=== PATIENT | female | born 1970 | race Caucasian/White ===

== ENCOUNTER 2020-06-09 12:17 | Outpatient (REF) | payer MEDICARE, MEDICAID, SELFPAY ==
--- NOTE | 2020-06-09 12:23 | MM_ITS ---
EXAMINATION: MM DIAGNOSTIC DIGITAL BREAST TOMOSYNTHESIS, BILATERAL US DIAGNOSTIC ULTRASOUND BREAST, LEFT CLINICAL INFORMATION: Chronic pain upper outer left breast for several years. Due for yearly exam. No known family history breast cancer The lifetime risk of breast cancer based on the Tyrer-Cuzick Model is 8%. COMPARISON: Mammography: 07/02/2018, 09/15/2010 TECHNIQUE: Digital breast tomosynthesis is performed in both the craniocaudal and mediolateral oblique views along with computer-aided detection (CAD). Synthesized 2D images are generated from the tomosynthesis. Ultrasound left breast is performed 12:00 through 5:00 position using grayscale imaging and color Doppler without and with harmonics. FINDINGS: There are scattered areas of fibroglandular density (ACR BI-RADS breast composition Category b). There is fine fibronodular parenchymal pattern similar to prior studies. There is no developing density or interval mass or architectural abnormality. No abnormal calcifications. No skin thickening or coarsening of the Yoel's ligaments. No significant changes from prior exams. Ultrasound left breast demonstrates no cystic or solid mass, architectural abnormality, or focal duct ectasia. No skin thickening or edema tracking in soft tissue planes. Results are discussed with the patient at time of visit, using an aviation safety inspector. MM/MM tomosynthesis diagnostic BI IMPRESSION: 1. No mammographic evidence of malignancy or inflammatory changes. 2. Unremarkable left breast ultrasound. ASSESSMENT: BI-RADS 1: Negative RECOMMENDATION: 1. Patient's chronic left breast pain should be be managed based on the clinical impression. 2. Otherwise, routine annual screening mammography. This patient's information was entered into a reminder system with a target due date for their next mammogram.
== END 2020-06-09 12:18 | disposition home or self-care (01) ==
LOC: HO.MAMMO 12:17
PROVIDERS: PCP Internal Medicine; Visit Provider Internal Medicine
DX: N64.4 Mastodynia (principal)
CPT/HCPCS: 76641; 77062; 77066

== ENCOUNTER → 2020-06-10 15:05 | Outpatient (BNVA) | payer MEDICARE, MEDICAID, SELFPAY | PROVIDERS: PCP Internal Medicine; Referring Provider Internal Medicine; Visit Provider Obstetrics & Gynecology | DX: R10.31 Right lower quadrant pain (principal) | CPT/HCPCS: 99212 ==

== ENCOUNTER 2020-06-14 13:51 | Outpatient (REF) | payer MEDICARE, MEDICAID, SELFPAY ==
--- NOTE | 2020-06-14 13:57 | US_ITS ---
EXAMINATION: US PELVIS, COMPLETE CLINICAL INFORMATION: Pelvic pain; postmenopausal patient. COMPARISON: Pelvic ultrasound dated 12/22/2011. TECHNIQUE: Transabdominal and transvaginal imaging was performed. FINDINGS: The uterus is of normal size and heterogeneous in echotexture, measuring 7.6 x 3.9 x 4.3 cm. The uterus is anteverted and anteflexed. A regular homogeneous endometrium is identified measuring 0.4 cm. Nabothian cysts are seen within the cervix Both ovaries are of normal size and echogenicity. The right ovary measures 2.0 x 1.2 x 1.7 cm for a volume of 2.1 mL. The left ovary measures 2.3 x 1.4 x 1.4 cm for a volume of 2.4 mL. There is a small amount of free fluid in the cul-de-sac. No adnexal mass is seen. US/US transvaginal IMPRESSION: 1. There is a small amount of nonspecific free fluid in the cul-de-sac. 2. Nabothian cysts are seen within the cervix. 3. Otherwise, unremarkable examination.
--- NOTE | 2020-06-14 13:57 | US_ITS ---
EXAMINATION: US PELVIS, COMPLETE CLINICAL INFORMATION: Pelvic pain; postmenopausal patient. COMPARISON: Pelvic ultrasound dated 12/22/2011. TECHNIQUE: Transabdominal and transvaginal imaging was performed. FINDINGS: The uterus is of normal size and heterogeneous in echotexture, measuring 7.6 x 3.9 x 4.3 cm. The uterus is anteverted and anteflexed. A regular homogeneous endometrium is identified measuring 0.4 cm. Nabothian cysts are seen within the cervix Both ovaries are of normal size and echogenicity. The right ovary measures 2.0 x 1.2 x 1.7 cm for a volume of 2.1 mL. The left ovary measures 2.3 x 1.4 x 1.4 cm for a volume of 2.4 mL. There is a small amount of free fluid in the cul-de-sac. No adnexal mass is seen. US/US pelvic complete IMPRESSION: 1. There is a small amount of nonspecific free fluid in the cul-de-sac. 2. Nabothian cysts are seen within the cervix. 3. Otherwise, unremarkable examination.
== END 2020-06-14 13:52 | disposition home or self-care (01) ==
LOC: HO.US 13:51
PROVIDERS: Visit Provider Obstetrics & Gynecology
DX: R10.2 Pelvic and perineal pain (principal)
CPT/HCPCS: 76830; 76856

== ENCOUNTER 2020-07-26 12:41 | Outpatient (REF) | payer MEDICARE, MEDICAID, SELFPAY ==
[2020-07-27 09:42] LABS: BV Int Neg Control Negative (Negative); BV Int Pos Control Positive (Positive)
== END 2020-07-26 12:42 | disposition home or self-care (01) ==
LOC: HO.LAB 12:41
PROVIDERS: Visit Provider Obstetrics & Gynecology
DX: Z01.419 Encounter for gynecological examination (general) (routine) without abnormal findings (principal); B37.3 Candidiasis of vulva and vagina; Z78.0 Asymptomatic menopausal state
CPT/HCPCS: 87480; 87510; 87660

== ENCOUNTER 2020-08-23 12:33 | Outpatient (REF) | payer MEDICARE, MEDICAID, SELFPAY ==
[2020-08-23 14:02] LABS: Alanine Aminotransferase 149 U/L (0-31); Albumin Level 4.5 g/dL (3.5-5.0); Alkaline Phosphatase 64 U/L (39-117); Anion Gap 12 (12-20); Aspartate Amino Transferase 96 U/L (5-31); Bilirubin Total 0.3 mg/dL (0.0-1.0); Blood Urea Nitrogen 10 mg/dL (9-16); Calcium 9.4 mg/dL (8.4-10.2); Carbon Dioxide 34 mmol/L (22-29); Chloride 99 mmol/L (96-108); Cholesterol 268 mg/dL; Estimated Glomerular Filt Rate > 60; Glucose Fasting 99 mg/dL (60-99); HDL Cholesterol 48 mg/dL; LDL Cholesterol Calculated 182 mg/dl; Potassium 3.9 mmol/l (3.3-5.1); Sodium 141 mmol/L (135-145); Total Protein 7.8 g/dL (6.5-8.0); Triglycerides 194 mg/dL
[2020-08-23 14:09] LABS: TSH reflex Free T4 0.79 mIU/mL (0.32-4.0)
[2020-08-24 19:47] LABS: Thyroglobulin Antibodies <1 IU/mL (< or = 1); Thyroid Peroxidase Antibodies <1 IU/mL (<9)
== END 2020-08-23 12:34 | disposition home or self-care (01) ==
LOC: HO.LAB 12:33
PROVIDERS: PCP Internal Medicine; Visit Provider Internal Medicine
DX: I10 Essential (primary) hypertension (principal); E78.00 Pure hypercholesterolemia, unspecified; E03.9 Hypothyroidism, unspecified
CPT/HCPCS: 36415; 80053; 80061; 84443; 86376; 86800

== ENCOUNTER → 2020-08-24 14:40 | Outpatient (BNVA) | payer MEDICARE, MEDICAID, SELFPAY | PROVIDERS: PCP Obstetrics & Gynecology; Visit Provider Nurse Practitioner Family | DX: Z76.89 Persons encountering health services in other specified circumstances (principal) | CPT/HCPCS: Q3014 ==

== ENCOUNTER → 2020-10-11 12:35 | Outpatient (BNVA) | payer MEDICARE, MEDICAID, SELFPAY | PROVIDERS: PCP Internal Medicine; Visit Provider Internal Medicine | DX: Z01.810 Encounter for preprocedural cardiovascular examination (principal); R07.2 Precordial pain; I10 Essential (primary) hypertension; E78.5 Hyperlipidemia, unspecified | CPT/HCPCS: 93005; 99202 ==

== ENCOUNTER 2020-10-27 07:40 | Day surgery (SDC) | payer MEDICARE, MEDICAID, SELFPAY ==
[2020-10-21 14:23] VITALS: BMI 33.5
--- NOTE | 2020-10-26 10:38 | HO.ANESPROP2 ---
Documented by User: Kirsten Mahoney 10/26/20 12:12 HPI - Anesthesia Eval Consult details Narrative: 50yo F for Colonoscopy *multiple med allergies* Pt sent for cardiac clearance preop, stress test ordered, but patient no showed. Per Dr Gloria, cardiology, pt maybe proceed without stress test at intermed risk. Von Willebrands - per T/C with Dr Salazar, pt to receive platelets preop. Heme to fax orders. PMFSH Active Problems Active Problems: All Active Problems (Updated 10/21/20 @ 14:22 by Tracy Pittman) Preoperative cardiovascular examination (Acute) Precordial chest pain (Acute) Other and unspecified hyperlipidemia (Acute) Pain of left breast (Acute) Hypovitaminosis D (Acute) Fibromyalgia (Acute) Hypothyroidism (Acute) Essential hypertension (Acute) Pure hypercholesterolemia (Acute) Past Medical History Medical History (Updated 10/21/20 @ 14:22 by Tracy Pittman) Anxiety Depression Essential hypertension Fibromyalgia History of asthma Hyperparathyroidism Hypothyroidism Hypovitaminosis D Pain of left breast Pure hypercholesterolemia Recent travel on aircraft Rectal bleeding Von Willebrand disease Family History Family History Father Diabetes Hypertension Mother Hypertension Surgical History Surgical History (Updated 10/21/20 @ 14:18 by Tracy Pittman) History of History of loop electrical excision procedure (LEEP) History of melanoma Social History Social History (Updated 10/21/20 @ 14:19 by Tracy Pittman) Alcohol intake: never Smoking Status: Never smoker Use of substances other than those prescribed or required for medical reasons: Yes Substance Use Type: Marijuana Substance Use Frequency: Occasionally Advance Directives: No Advance Directives Information Provided: No Advance Directives on File: No Meds Allergies Allergy/AdvReac Type Severity Reaction Status Date / Time Iodinated Contrast Media Allergy Intermediate ITCHING/SHORTNESS Verified 10/11/20 12:54 [IV CONTRAST] OF BREATH aspirin [ASPIRIN] Allergy Unknown GASTRIC Verified 10/11/20 12:54 BLEEDING, bleeding divalproex sodium Allergy Unknown SWELLING Verified 10/11/20 12:54 [From DEPAKOTE] ezetimibe [Zetia] Allergy Unknown stomach Verified 10/11/20 12:54 upset lithium [LITHIUM] Allergy Unknown SWELLING Verified 10/11/20 12:54 metoclopramide [Reglan] Allergy Unknown anxiety Verified 10/11/20 12:54 pravastatin Allergy Unknown stomach Verified 10/11/20 12:54 upset simvastatin Allergy Unknown stomach Verified 10/11/20 12:54 upset Sulfa (Sulfonamide Allergy Unknown ITCHING, Verified 10/11/20 12:54 Antibiotics) pruritus, [SULFA (SULFONAMIDE rash ANTIBIOTICS)] lamotrigine [From LAMICTAL] AdvReac Unknown AGGRESSION Verified 10/11/20 12:54 flu shot Allergy Unknown pruritus,ra Uncoded 10/11/20 12:54 sh,vomiting seasonal allergies Allergy Unknown nasal and Uncoded 10/11/20 12:54 throat irratation Statins Support Allergy Unknown rash, itchy Uncoded 10/11/20 12:54 platelets AdvReac Mild redness,itching-IV Uncoded 10/11/20 12:54 Benadryl [id number] rash c PO From SEROQUEL AdvReac Unknown ANXIOUS Uncoded 10/11/20 12:54 Home Medications Medication Instructions Recorded Confirmed Last Taken Type amitriptyline 50 mg tablet 50 mg PO BEDTIME 05/18/20 10/21/20 Unknown History cholecalciferol (vitamin D3) 25 25 mcg PO DAILY 05/18/20 10/21/20 Unknown History mcg (1,000 unit) tablet furosemide 20 mg tablet 20 mg PO DAILY 05/18/20 10/21/20 Unknown History lisinopril 10 1 tab PO DAILY 05/18/20 10/21/20 Unknown History mg-hydrochlorothiazide 12.5 mg tablet risperidone 1 mg tablet 1 mg PO BID 05/18/20 10/21/20 10/27/20 History gabapentin 800 mg tablet 800 mg PO TID 06/10/20 10/21/20 10/27/20 History fluoxetine 40 mg capsule 40 mg PO DAILY cap 10/11/20 10/21/20 10/27/20 History Exam Exam Date and Time: October 26, 2020 1038 Height,Weight and Vital Signs: Height 5 ft 3 in Weight 85.729 kg Pertinent Lab Results Pertinent Lab Results: Laboratory Tests 02/15/20 08/23/20 15:00 12:55 WBC 9.6 Hgb 14.3 Hct 44.2 Plt Count 371 Sodium 141 Potassium 3.9 Chloride 99 Carbon Dioxide 34 H BUN 10 Creatinine 0.64 Narrative Narrative: EKG 10/11/2020 sinus rhythm at 87/Min; no significant ST-T changes and otherwise unremarkable Echocardiogram from 2018 showed normal LVEF at 60-65% and no wall motion abnormalities or other dysfunction. Assessment and Plan Assessment Anesthesia Assessment: Chart Reviewed Documented by User: Cheryl Watkins 10/27/20 08:19 [facility] Past Medical History Medical History (Updated 10/21/20 @ 14:22 by Tracy Pittman) Anxiety Depression Essential hypertension Fibromyalgia History of asthma Hyperparathyroidism Hypothyroidism Hypovitaminosis D Pain of left breast Pure hypercholesterolemia Recent travel on aircraft Rectal bleeding Von Willebrand disease Family History Family History Father Diabetes Hypertension Mother Hypertension Surgical History Surgical History (Updated 10/21/20 @ 14:18 by Tracy Pittman) History of History of loop electrical excision procedure (LEEP) History of melanoma Social History Social History (Updated 10/21/20 @ 14:19 by Tracy Pittman) Alcohol intake: never Smoking Status: Never smoker Use of substances other than those prescribed or required for medical reasons: Yes Substance Use Type: Marijuana Substance Use Frequency: Occasionally Advance Directives: No Advance Directives Information Provided: No Advance Directives on File: No Meds Allergies Allergy/AdvReac Type Severity Reaction Status Date / Time Iodinated Contrast Media Allergy Intermediate ITCHING/SHORTNESS Verified 10/11/20 12:54 [IV CONTRAST] OF BREATH aspirin [ASPIRIN] Allergy Unknown GASTRIC Verified 10/11/20 12:54 BLEEDING, bleeding divalproex sodium Allergy Unknown SWELLING Verified 10/11/20 12:54 [From DEPAKOTE] ezetimibe [Zetia] Allergy Unknown stomach Verified 10/11/20 12:54 upset lithium [LITHIUM] Allergy Unknown SWELLING Verified 10/11/20 12:54 metoclopramide [Reglan] Allergy Unknown anxiety Verified 10/11/20 12:54 pravastatin Allergy Unknown stomach Verified 10/11/20 12:54 upset simvastatin Allergy Unknown stomach Verified 10/11/20 12:54 upset Sulfa (Sulfonamide Allergy Unknown ITCHING, Verified 10/11/20 12:54 Antibiotics) pruritus, [SULFA (SULFONAMIDE rash ANTIBIOTICS)] lamotrigine [From LAMICTAL] AdvReac Unknown AGGRESSION Verified 10/11/20 12:54 flu shot Allergy Unknown pruritus,ra Uncoded 10/11/20 12:54 sh,vomiting seasonal allergies Allergy Unknown nasal and Uncoded 10/11/20 12:54 throat irratation Statins Support Allergy Unknown rash, itchy Uncoded 10/11/20 12:54 platelets AdvReac Mild redness,itching-IV Uncoded 10/11/20 12:54 Benadryl [id number]-[id number] rash c PO From SEROQUEL AdvReac Unknown ANXIOUS Uncoded 10/11/20 12:54 Home Medications Medication Instructions Recorded Confirmed Last Taken Type amitriptyline 50 mg tablet 50 mg PO BEDTIME 05/18/20 10/21/20 Unknown History cholecalciferol (vitamin D3) 25 25 mcg PO DAILY 05/18/20 10/21/20 Unknown History mcg (1,000 unit) tablet furosemide 20 mg tablet 20 mg PO DAILY 05/18/20 10/21/20 Unknown History lisinopril 10 1 tab PO DAILY 05/18/20 10/21/20 Unknown History mg-hydrochlorothiazide 12.5 mg tablet risperidone 1 mg tablet 1 mg PO BID 05/18/20 10/21/20 10/27/20 History gabapentin 800 mg tablet 800 mg PO TID 06/10/20 10/21/20 10/27/20 History fluoxetine 40 mg capsule 40 mg PO DAILY cap 10/11/20 10/21/20 10/27/20 History Exam Airway Mallampati Class: II TM Dist: >3cm Neck ROM: Full Heart: RRR Lungs: CtA BL Assessment and Plan Assessment Anesthesia Assessment: Anesthesia Plan Discussed and Chart Reviewed Final Anesthetic Review NPO: Yes (Sip water with meds) ASA Class: III Final Preanesthetic Review: No Changes in Pt Med Stat and Consent Obtained/Reviewed Patient Risk: Intermediate Procedure Risk: Intermediate Anesthetic Plan Anesthetic Plan: MAC: Disposition: Standard PACU
[2020-10-27 08:03] VITALS: BP 114/87; PULSE 88; RESP 18; TEMP 36.6; O2SAT 98
[2020-10-27 08:10] LABS: MANUAL DIFF FLAG NO
[2020-10-27 08:16] LABS: Basophils Absolute Auto 0.1 X10*3/uL (0.0-0.2); Basophils Percent Auto 0.8 % (0-2); Eosinophils Absolute Auto 0.5 X10*3/uL (0.0-0.4); Hematocrit 47.3 % (37-47); Hemoglobin 15.4 g/dl (12.0-16.0); Imm Gran Abs Auto 0.01 X10*3/uL (0.00-0.03); Imm Gran Pct Auto 0.1 % (0.0-0.4); Lymphocytes Absolute Auto 2.5 X10*3/uL (1.2-4.9); Lymphocytes Percent Auto 27.2 % (20-40); Mean Corpuscular HGB Conc 32.6 g/dl (31.0-35.0); Mean Corpuscular Hemoglobin 28.3 pg (27.0-33.0); Mean Corpuscular Volume 86.8 fL (80-98); Mean Platelet Volume 11.4 fL (9.4-12.3); Monocytes Absolute Auto 0.5 X10*3/uL (0.1-1.2); Monocytes Percent Auto 5.5 % (2-11); Neutrophils Absolute Auto 5.7 X10*3/uL (2.0-8.3); Neutrophils Percent Auto 61.4 % (45-73); Platelet Count 311 X10*3/uL (160-400); Red Blood Count 5.45 X10*6/uL (4.20-5.50); Red Cell Distribution Width 13.5 % (11.0-16.0); White Blood Count 9.2 X10*3/uL (4.8-10.8)
[2020-10-27] MEDS: Lactated Ringers 1,000 ML 100 ML IVCONT (08:36)
--- NOTE | 2020-10-27 08:37 | PC.NURSE ---
Patient premedicated as ordered with Benadryl 25 mg IV, Solumedrol 100 mg IV and Oxycodone 5 mg po.
[2020-10-27 08:43] LABS: Anion Gap 15 (12-20); Blood Urea Nitrogen 8 mg/dL (9-16); Calcium 9.4 mg/dL (8.4-10.2); Carbon Dioxide 28 mmol/L (22-29); Chloride 98 mmol/L (96-108); Creatinine Clr Calc Pharmacy 97.2; Estimated Glomerular Filt Rate > 60; Glucose Fasting 109 mg/dL (60-99); Potassium 3.2 mmol/L (3.3-5.1); Sodium 138 mmol/L (135-145)
--- NOTE | 2020-10-27 09:16 | PC.NURSE ---
Patient complained of feeling hot 10 minutes after start of platelet infusion. Pt evaluated by Dr Vital who advised to continue platelet infusion at a reduced rate. VSS, no shortness of breath or rash. 0915, pt feeling well.
--- NOTE | 2020-10-27 09:16 | MHC.SHP ---
Pre-Procedural Eval Section B Chief Complaint: screening Relevant Family History (Specify if Yes): No Relevant Social History: Other (specify) (THC) Present Medications: see Short Stay Collaborative assessment Medical History: Significant History (Anxiety Depression Essential hypertension Fibromyalgia History of asthma Hyperparathyroidism Hypothyroidism Hypovitaminosis D Pain of left breast Pure hypercholesterolemia Recent travel on aircraft Rectal bleeding Von Willebrand disease) History of Previous Operations: Relevant previous surgery/procedure and date(s) (, ) Allergies: Allergies Allergy/AdvReac Type Severity Reaction Status Date / Time Iodinated Contrast Media Allergy Intermediate ITCHING/SHORTNESS Verified 10/11/20 12:54 [IV CONTRAST] OF BREATH aspirin [ASPIRIN] Allergy Unknown GASTRIC Verified 10/11/20 12:54 BLEEDING, bleeding divalproex sodium Allergy Unknown SWELLING Verified 10/11/20 12:54 [From DEPAKOTE] ezetimibe [Zetia] Allergy Unknown stomach Verified 10/11/20 12:54 upset lithium [LITHIUM] Allergy Unknown SWELLING Verified 10/11/20 12:54 metoclopramide [Reglan] Allergy Unknown anxiety Verified 10/11/20 12:54 pravastatin Allergy Unknown stomach Verified 10/11/20 12:54 upset simvastatin Allergy Unknown stomach Verified 10/11/20 12:54 upset Sulfa (Sulfonamide Allergy Unknown ITCHING, Verified 10/11/20 12:54 Antibiotics) pruritus, [SULFA (SULFONAMIDE rash ANTIBIOTICS)] lamotrigine [From LAMICTAL] AdvReac Unknown AGGRESSION Verified 10/11/20 12:54 flu shot Allergy Unknown pruritus,ra Uncoded 10/11/20 12:54 sh,vomiting seasonal allergies Allergy Unknown nasal and Uncoded 10/11/20 12:54 throat irratation Statins Support Allergy Unknown rash, itchy Uncoded 10/11/20 12:54 platelets AdvReac Mild redness,itching-IV Uncoded 10/11/20 12:54 Benadryl [id number]-ikri rash c PO From SEROQUEL AdvReac Unknown ANXIOUS Uncoded 10/11/20 12:54 Review of Systems Sugical H&P ROS: Negative: Constitution, Cardiovascular, Respiratory, Neurological, Psychiatric, Hem-Onc, Allergic/Immunologic, Gastrointestinal, Genitourinary, Musculoskeletal, Integumentary, Endocrine and Eyes/Ears/Nose/Throat Exam Surgical H&P Exam: Normal: HEENT, Normal: Heart, Normal: Lungs, Normal: Extremities, Normal: Abdomen, Normal: Skin and Normal: Neurological Plan Diagnosis/Plan: Unchanged I have reviewed the history and physical and performed a pertinent physical examination on my patient. No changes have occurred unless specified.
--- NOTE | 2020-10-27 09:22 | P.OP_ITS ---
Operative Note Operative Note Date of Service: 10/27/20 Narrative: Operative Information Procedure Description: Colonoscopy COLONOSCOPY Instrument: Olympus variable stiffness pediatric scope 190L Colonoscopy Monitoring: Vital signs and clinical assessment, continuous EKG monitoring, Pulse oximetry, Carbon Dioxide monitoring and blood pressure monitoring were done throughout the procedure. Colon withdrawal time was 9 minutes. Procedure: The patient was placed in the left lateral decubitis position and pre-procedure medications were administered. After a digital rectal examination of the ano-rectum, the video colonoscope was inserted into the rectum and advanced through the colon to the cecum/TI. The colonoscope was slowly withdrawn in a retrograde panoramic fashion and the colon mucosa was carefully examined including a retroflexed view of the rectum. Findings and interventions are described below. Procedure Difficulty: moderate, pressure applied due to looping to reach cecum Findings: Terminal Ileum-normal Cecum:normal Ascending Colon: normal Transverse Colon -9-10 mm sessile polyp removed with cold snare, x2 clips applied to defect Descending Colon:normal Sigmoid Colon: normal Rectum: Retroflexion with small internal hemorrhoids, grade I Anorectum - normal Colon preparation: [place] Bowel Preparation Scale Right colon; 2 Transverse colon: 3 Left colon; 2 (0 = Unprepared colon segment with mucosa not seen due to solid stool that cannot be cleared. 1 = Portion of mucosa of the colon segment seen, but other areas of the colon segment not well seen due to staining, residual stool and/or opaque liquid. 2 = Minor amount of residual staining, small fragments of stool and/or opaque liquid, but mucosa of colon segment seen well. 3 = Entire mucosa of colon segment seen well with no residual staining, small fragments of stool or opaque liquid) Impression and Post Procedure Diagnosis: internal hemorrhoids polyp Plan: High fiber diet leaflet Avoid straining at stool, epsom salts and sitz bath, anusol supps or cream Repeat Colonoscopy in 5 years if adenoma, 10 yrs if hyperplastic or earlier if clinically indicated Above findings were reviewed with the patient and relevant handouts were provided if indicated.
--- NOTE | 2020-10-27 09:22 | PM.OP ---
Brief Operative Note Date of Service: 10/27/20 Pre-op diagnosis: colon screen Post-op diagnosis: same Procedure: see op note Surgeon: Yobani Maldonado MD Anesthesia: MAC Estimated blood loss (mL): 0 Condition: stable Disposition: PACU
[2020-10-27 10:06] VITALS: BP 111/71; PULSE 86; RESP 16; TEMP 36.3; O2SAT 92
[2020-10-27 10:21] VITALS: BP 110/73; PULSE 86; RESP 18; TEMP 36.3; O2SAT 94
== END 2020-10-27 10:46 | disposition home or self-care (01) ==
PROVIDERS: Internal Medicine Medical Oncology; PCP Internal Medicine; Visit Provider Internal Medicine Gastroenterology
PROC: 0DJD8ZZ Inspection of Lower Intestinal Tract, Via Natural or Artificial Opening Endoscopic (ICD-10-PCS; CPT 45378; principal; 2020-10-27 09:20)
DX: Z12.11 Encounter for screening for malignant neoplasm of colon (principal); D12.3 Benign neoplasm of transverse colon; K64.0 First degree hemorrhoids; I10 Essential (primary) hypertension; J45.909 Unspecified asthma, uncomplicated; D68.0 Von Willebrand disease; F32.9 Major depressive disorder, single episode, unspecified; F12.90 Cannabis use, unspecified, uncomplicated; Z79.899 Other long term (current) drug therapy; Z85.820 Personal history of malignant melanoma of skin; Z88.2 Allergy status to sulfonamides; Z91.041 Radiographic dye allergy status; Z88.7 Allergy status to serum and vaccine; Z88.8 Allergy status to other drugs, medicaments and biological substances
CPT/HCPCS: 45385; 36415; 36430; 80048; 85025; 86850; 86900; 88305; J1200; J2930; P9037

== ENCOUNTER → 2020-11-17 14:03 | Outpatient (BNVA) | payer MEDICARE, MEDICAID, SELFPAY | PROVIDERS: PCP Internal Medicine; Visit Provider Nurse Practitioner Family ==

== ENCOUNTER 2020-12-07 13:32 | Outpatient (REF) | payer MEDICARE, MEDICAID, SELFPAY ==
[2020-12-07 16:49] LABS: Ferritin 894 ng/mL (10-250)
[2020-12-08 08:08] LABS: HBS Num1 0.04 mIU/mL (0-7.99); HBc Num1 0.11 S/CO (0.00-0.79); HIV AB/AG Nonreactive (Nonreactive); HIV Num 1 0.11 S/CO (0.00-0.99); Hepatitis B Core Antibody Nonreactive (Nonreactive); ~Hepatitis B Surface Antibody NONREACTIVE (Nonreactive)
[2020-12-08 08:33] LABS: HBsAGNum1 0.16 S/CO (0.00-0.99); Hepatitis A Antibody IgM 0.18 Index (0-0.79); Hepatitis B Surface Antigen Negative (Negative); ~HepC Num1 0.12 S/CO (0.00-0.79); ~Hepatitis A Antibody IgM Nonreactive (Nonreactive); ~Hepatitis C Antibody Nonreactive (Nonreactive)
[2020-12-08 10:27] LABS: Alpha Fetoprotein 3.7 ng/mL
[2020-12-08 13:21] LABS: Transglutaminase Ab IgG 1 U/mL; Transglutaminase IgA 1 U/mL
[2020-12-08 14:56] LABS: CRP High Sensitivity >10.0 mg/L; Mitochondrial Antibodies NEGATIVE (NEGATIVE)
[2020-12-13 13:01] LABS: Smooth Muscle Antibody <20 U (<20)
== END 2020-12-07 13:33 | disposition home or self-care (01) ==
LOC: HO.LAB 13:32
PROVIDERS: PCP Internal Medicine; Visit Provider Nurse Practitioner Family
DX: R10.11 Right upper quadrant pain (principal); R19.7 Diarrhea, unspecified; D36.9 Benign neoplasm, unspecified site; R74.8 Abnormal levels of other serum enzymes; Z98.890 Other specified postprocedural states; Z83.79 Family history of other diseases of the digestive system
CPT/HCPCS: 36415; 82105; 82728; 83516; 86141; 86255; 86256; 86704; 86706; 86709; 86803; 87340; 87389; 99212

== ENCOUNTER 2020-12-08 15:13 | Outpatient (REF) | payer MEDICARE, MEDICAID, SELFPAY ==
[2020-12-08 15:46] LABS: Leukocytes Stool Qualitative NEGATIVE (NEGATIVE)
[2020-12-09 07:41] LABS: CDIFF Ag Negative (Negative); CDIFF Internal ctrl Dots and bkg OK (V); CDiff Toxin Negative (Negative)
== END 2020-12-08 15:14 | disposition home or self-care (01) ==
LOC: HO.LNP 15:13
PROVIDERS: Visit Provider Nurse Practitioner Family
DX: R19.7 Diarrhea, unspecified (principal); K21.9 Gastro-esophageal reflux disease without esophagitis
CPT/HCPCS: 87045; 87046; 87177; 87209; 87324; 87338; 87449; 89055

== ENCOUNTER 2020-12-29 09:38 | Outpatient (REF) | payer MEDICARE, MEDICAID, SELFPAY ==
--- NOTE | ~2020-12-29 | US_ITS ---
EXAMINATION: US COMPLETE ABDOMEN WITH LIVER ELASTOGRAPHY CLINICAL INFORMATION: Abdominal liver serum enzymes. COMPARISON: CT abdomen and pelvis 11/14/2019. TECHNIQUE: Real-time imaging of the abdominal viscera. Noninvasive ultrasound liver fibrosis assessment is performed using Mauricio ElastPQ point quantification shear wave elastography (pSWE) with a C5-2 MHz transducer. Multiple elastography samples are obtained. FINDINGS: PANCREAS: The visualized pancreatic head and body are normal in appearance. The tail of the pancreas is obscured from visualization by the overlying bowel gas. ABDOMINAL AORTA: The proximal and mid aortic segments are normal in caliber. The distal abdominal aorta is not visualized. INFERIOR VENA CAVA: Visualized portions are normal. LIVER: The liver demonstrates normal size, contour and increased echogenicity. No focal lesion or intrahepatic biliary duct dilatation. The right lobe measures 19.8 cm in length. The left lobe measures 12.7 cm in length. Portal flow is hepatopedal. Shear wave liver elastography median stiffness is 1.25 m/s (reference: normal median stiffness is 1.3 m/s or less). IQR/median stiffness to assess sampling precision is 0.22 (reference: good quality data set is IQR/median stiffness of 0.15 or less). GALLBLADDER: Normal. The gallbladder is physiologically distended without evidence of stones, sludge, polyps, wall thickening or pericholecystic fluid. COMMON BILE DUCT: Normal in caliber measuring 0.25 cm in diameter. RIGHT KIDNEY: Normal. No hydronephrosis. No renal calculi or focal parenchymal lesions. The kidney measures 11.9 cm in maximum dimension. LEFT KIDNEY: Normal. No hydronephrosis. No renal calculi or focal parenchymal lesions. The kidney measures 10.4 cm in maximum dimension. SPLEEN: Normal. The spleen measures 9.4 cm in maximum dimension. FREE FLUID: None. US/US abdomen comp w elastography IMPRESSION: 1. Hepatic steatosis without focal lesion. Rest of the abdominal ultrasound is unremarkable. 2. Liver elastography: Median stiffness is 1.25 m/s. Findings are suggestive of a high-normal probability. REFERENCE: Society of Radiologists in Ultrasound Liver Stiffness Thresholds (2019): LIVER STIFFNESS THRESHOLDS: *Liver Stiffness equal or less than 1.3 m/s: High probability of being normal. *Liver Stiffness less than 1.7 m/s: In the absence of other known clinical signs, rules out compensated advanced chronic liver disease. *Liver Stiffness 1.7-2.1 m/s: Suggestive of compensated advanced chronic liver disease but need further test for confirmation. *Liver Stiffness over 2.1 m/s: Rules in compensated advanced chronic liver disease. *Liver Stiffness over 2.4 m/s: Suggestive of clinically significant portal hypertension. QUALITY OF DATA SET: *IQR/Median value equal or less than 0.15 implies a quality data set. *IQR/Median value over 0.15 implies a poor quality data set. SIGNIFICANT CHANGE FROM PRIOR EXAM: Significant change if liver stiffness measurement is 10% or greater from prior exam. OTHER CONSIDERATIONS: The stage of liver fibrosis may be overestimated in the setting of acute hepatitis, liver inflammation, elevated liver function tests, hepatic vascular congestion, obstructive cholestasis, non-fasting state, and infiltrative diseases such as amyloidosis and lymphoma. In some patients with NAFLD, the liver stiffness thresholds for compensated advanced chronic liver disease may be lower. In causes other than viral hepatitis and NAFLD, liver stiffness thresholds are not well established.
== END 2020-12-29 09:39 | disposition home or self-care (01) ==
LOC: HO.US 09:38
PROVIDERS: PCP Internal Medicine; Visit Provider Nurse Practitioner Family
DX: R94.5 Abnormal results of liver function studies (principal); R74.8 Abnormal levels of other serum enzymes
CPT/HCPCS: 76705; 76981

== ENCOUNTER → 2021-01-11 13:48 | Outpatient (BNVA) | payer MEDICARE, MEDICAID, SELFPAY | PROVIDERS: PCP Internal Medicine; Referring Provider Internal Medicine; Visit Provider Nurse Practitioner Family | DX: R74.8 Abnormal levels of other serum enzymes (principal); R10.13 Epigastric pain | CPT/HCPCS: 99212 ==

== ENCOUNTER → 2021-02-15 14:27 | Outpatient (BNVA) | payer MEDICARE, MEDICAID, SELFPAY | PROVIDERS: Visit Provider Nurse Practitioner Family | DX: K21.9 Gastro-esophageal reflux disease without esophagitis (principal); R74.8 Abnormal levels of other serum enzymes; K59.00 Constipation, unspecified | CPT/HCPCS: Q3014 ==

== ENCOUNTER 2021-02-22 12:25 | Outpatient (REF) | payer MEDICARE, MEDICAID, SELFPAY ==
[2021-02-24 10:26] LABS: Immunoglobulin G 1244 mg/dL (600-1640)
[2021-02-24 12:52] LABS: Anti Nuclear Antibody Screen NEGATIVE (NEGATIVE)
[2021-02-25 18:11] LABS: Ceruloplasmin 32 mg/dL (18-53)
== END 2021-02-22 12:26 | disposition home or self-care (01) ==
LOC: HO.LAB 12:25
PROVIDERS: PCP Internal Medicine; Visit Provider Nurse Practitioner Family
DX: R74.8 Abnormal levels of other serum enzymes (principal); R79.89 Other specified abnormal findings of blood chemistry
CPT/HCPCS: 36415; 82390; 82784; 86038; 86039

== ENCOUNTER → 2021-03-23 13:45 | Outpatient (BNVA) | payer MEDICARE, MEDICAID, SELFPAY | PROVIDERS: PCP Internal Medicine; Visit Provider Nurse Practitioner Family | DX: K59.01 Slow transit constipation (principal); R74.8 Abnormal levels of other serum enzymes | CPT/HCPCS: 99212 ==

== ENCOUNTER 2021-05-17 10:27 | Outpatient (REF) | payer MEDICARE, MEDICAID, SELFPAY ==
[2021-05-17 10:44] LABS: MANUAL DIFF FLAG NO
[2021-05-17 11:04] LABS: Basophils Absolute Auto 0.1 X10*3/uL (0.0-0.2); Basophils Percent Auto 0.6 % (0-2); Eosinophils Absolute Auto 0.5 X10*3/uL (0.0-0.4); Eosinophils Percent Auto 5.1 % (0-4); Hematocrit 40.3 % (37-47); Hemoglobin 13.3 g/dl (12.0-16.0); Imm Gran Abs Auto 0.04 X10*3/uL (0.00-0.03); Imm Gran Pct Auto 0.4 % (0.0-0.4); Lymphocytes Percent Auto 31.8 % (20-40); Mean Corpuscular Hemoglobin 28.5 pg (27.0-33.0); Mean Corpuscular Volume 86.3 fL (80-98); Mean Platelet Volume 11.2 fL (9.4-12.3); Monocytes Absolute Auto 0.6 X10*3/uL (0.1-1.2); Monocytes Percent Auto 6.4 % (2-11); Neutrophils Absolute Auto 5.2 X10*3/uL (2.0-8.3); Neutrophils Percent Auto 55.7 % (45-73); Platelet Count 326 X10*3/uL (160-400); Red Blood Count 4.67 X10*6/uL (4.20-5.50); Red Cell Distribution Width 13.1 % (11.0-16.0); White Blood Count 9.4 X10*3/uL (4.8-10.8)
[2021-05-17 11:27] LABS: Alanine Aminotransferase 65 U/L (0-31); Albumin Level 4.3 g/dL (3.5-5.0); Alkaline Phosphatase 59 U/L (39-117); Anion Gap 13 (12-20); Aspartate Amino Transferase 33 U/L (5-31); Bilirubin Total 0.2 mg/dL (0.0-1.0); Blood Urea Nitrogen 16 mg/dL (9-16); Calcium 9.9 mg/dL (8.4-10.2); Carbon Dioxide 31 mmol/L (22-29); Chloride 100 mmol/L (96-108); Cholesterol 259 mg/dL; Estimated Glomerular Filt Rate > 60; Glucose Fasting 103 mg/dL (60-99); HDL Cholesterol 40 mg/dL; Iron 66 mcg/dL (30-160); LDL Cholesterol Calculated 159 mg/dl; Percent Iron Saturation 22 % (15-50); Potassium 3.5 mmol/L (3.3-5.1); Sodium 140 mmol/L (135-145); Total Iron Binding Capacity 295 mcg/dL (228-428); Total Protein 7.2 g/dL (6.5-8.0); Triglycerides 302 mg/dL; Unsaturated Iron Binding 229 ug/dL
[2021-05-17 11:47] LABS: Ferritin 333 ng/mL (10-250); Thyroid Stimulating Hormone 2.61 uIU/mL (0.32-4.0)
[2021-05-21 13:10] LABS: Vitamin D 25-OH, D2 <4 ng/mL; Vitamin D 25-OH, D3 34 ng/mL; Vitamin D 25-OH, Total 34 ng/mL (30-100)
== END 2021-05-17 10:28 | disposition home or self-care (01) ==
LOC: HO.LAB 10:27
PROVIDERS: Absent Provider Internal Medicine; PCP Internal Medicine; Visit Provider Nurse Practitioner Family
DX: R74.8 Abnormal levels of other serum enzymes (principal); E55.9 Vitamin D deficiency, unspecified; E03.9 Hypothyroidism, unspecified; E78.5 Hyperlipidemia, unspecified; I10 Essential (primary) hypertension; D64.9 Anemia, unspecified; Z12.11 Encounter for screening for malignant neoplasm of colon
CPT/HCPCS: 36415; 80053; 80061; 82306; 82728; 83540; 84443; 85025; 85027

== ENCOUNTER → 2021-07-27 13:35 | Outpatient (BNVA) | payer MEDICARE, MEDICAID, SELFPAY | PROVIDERS: Visit Provider Advanced Practice Midwife ==

== ENCOUNTER → 2021-08-30 14:04 | Outpatient (BNVA) | payer MEDICARE, MEDICAID, SELFPAY | PROVIDERS: Visit Provider Nurse Practitioner Family | DX: K59.04 Chronic idiopathic constipation (principal); R74.8 Abnormal levels of other serum enzymes; K21.9 Gastro-esophageal reflux disease without esophagitis; R11.0 Nausea; E03.9 Hypothyroidism, unspecified | CPT/HCPCS: 99212 ==

== ENCOUNTER 2021-10-31 11:42 | Outpatient (REF) | payer MEDICARE, MEDICAID, SELFPAY ==
[2021-10-31 12:56] LABS: Alanine Aminotransferase 64 U/L (0-31); Albumin Level 4.4 g/dL (3.5-5.0); Alkaline Phosphatase 65 U/L (39-117); Anion Gap 15 (12-20); Aspartate Amino Transferase 36 U/L (5-31); Bilirubin Direct < 0.2 mg/dL (0.0-0.5); Bilirubin Total 0.4 mg/dL (0.0-1.0); Blood Urea Nitrogen 11 mg/dL (9-16); Calcium 10.4 mg/dL (8.4-10.2); Carbon Dioxide 32 mmol/L (22-29); Chloride 97 mmol/L (96-108); Cholesterol 278 mg/dL; Estimated Glomerular Filt Rate > 60; Glucose Fasting 94 mg/dL (60-99); HDL Cholesterol 37 mg/dL; Potassium 3.7 mmol/L (3.3-5.1); Sodium 140 mmol/L (135-145); Total Protein 7.8 g/dL (6.5-8.0); Triglycerides 463 mg/dL
[2021-10-31 13:18] LABS: Ferritin 252 ng/mL (10-250)
[2021-10-31 13:55] LABS: Thyroid Stimulating Hormone 2.27 uIU/mL (0.32-4.0)
[2021-10-31 14:15] LABS: Vitamin B12 446 pg/mL (200-900)
[2021-11-05 13:16] LABS: Vitamin D 25-OH, D2 <4 ng/mL; Vitamin D 25-OH, D3 34 ng/mL; Vitamin D 25-OH, Total 34 ng/mL (30-100)
== END 2021-10-31 11:43 | disposition home or self-care (01) ==
LOC: HO.LAB 11:42
PROVIDERS: Absent Provider Internal Medicine; PCP Internal Medicine; Visit Provider Nurse Practitioner Family
DX: R19.7 Diarrhea, unspecified (principal); R74.8 Abnormal levels of other serum enzymes; E78.5 Hyperlipidemia, unspecified; E03.9 Hypothyroidism, unspecified; E55.9 Vitamin D deficiency, unspecified
CPT/HCPCS: 36415; 80053; 80061; 80076; 82248; 82306; 82607; 82728; 82746; 84443

== ENCOUNTER 2022-01-10 12:25 | Outpatient (REF) | payer MEDICARE, MEDICAID, SELFPAY ==
[2022-01-10 12:33] LABS: MANUAL DIFF FLAG NO
[2022-01-10 12:55] LABS: Basophils Absolute Auto 0.1 X10*3/uL (0.0-0.2); Eosinophils Absolute Auto 0.2 X10*3/uL (0.0-0.4); Eosinophils Percent Auto 3.1 % (0-4); Hematocrit 41.3 % (37.0-47.0); Hemoglobin 13.3 g/dl (12.0-16.0); Imm Gran Abs Auto 0.02 X10*3/uL (0.00-0.03); Imm Gran Pct Auto 0.3 % (0.0-0.4); Lymphocytes Absolute Auto 2.5 X10*3/uL (1.2-4.9); Lymphocytes Percent Auto 37.7 % (20-40); Mean Corpuscular HGB Conc 32.2 g/dl (31.0-35.0); Mean Corpuscular Hemoglobin 28.1 pg (27.0-33.0); Mean Corpuscular Volume 87.1 fL (80.0-98.0); Mean Platelet Volume 11.3 fL (9.4-12.3); Monocytes Absolute Auto 0.5 X10*3/uL (0.1-1.2); Neutrophils Absolute Auto 3.4 x10*3/uL (2.0-8.3); Neutrophils Percent Auto 50.9 % (45-73); Platelet Count 324 X10*3/uL (160-400); Red Blood Count 4.74 X10*6/uL (4.20-5.50); White Blood Count 6.7 X10*3/uL (4.8-10.8)
[2022-01-10 13:23] LABS: Alanine Aminotransferase 50 U/L (0-31); Albumin Level 4.3 g/dL (3.5-5.0); Alkaline Phosphatase 58 U/L (39-117); Anion Gap 14 (12-20); Aspartate Amino Transferase 29 U/L (5-31); Bilirubin Total 0.5 mg/dL (0.0-1.0); Blood Urea Nitrogen 18 mg/dL (9-16); Calcium 10.1 mg/dL (8.4-10.2); Carbon Dioxide 29 mmol/L (22-29); Chloride 100 mmol/L (96-108); Cholesterol 272 mg/dL; Estimated Glomerular Filt Rate > 60; Glucose Fasting 92 mg/dL (60-99); HDL Cholesterol 47 mg/dL; LDL Cholesterol Calculated 183 mg/dl; Potassium 4.1 mmol/L (3.3-5.1); Sodium 139 mmol/L (135-145); Total Protein 7.4 g/dL (6.5-8.0); Triglycerides 213 mg/dL
[2022-01-10 13:45] LABS: Thyroid Stimulating Hormone 0.66 uIU/mL (0.32-4.0); Vitamin D 25-OH Total 31.7 ng/mL (>30)
== END 2022-01-10 12:26 | disposition home or self-care (01) ==
LOC: HO.LAB 12:25
PROVIDERS: PCP Internal Medicine; Visit Provider Internal Medicine
DX: E55.9 Vitamin D deficiency, unspecified (principal); E03.9 Hypothyroidism, unspecified; E78.5 Hyperlipidemia, unspecified; I10 Essential (primary) hypertension; D64.9 Anemia, unspecified
CPT/HCPCS: 36415; 80053; 80061; 82306; 84443; 85025

== ENCOUNTER → 2022-01-17 13:34 | Outpatient (BNVA) | payer MEDICARE, MEDICAID, SELFPAY | PROVIDERS: PCP Internal Medicine; Referring Provider Internal Medicine; Visit Provider Internal Medicine | DX: R07.2 Precordial pain (principal); I10 Essential (primary) hypertension | CPT/HCPCS: 93005; 99212 ==

== ENCOUNTER 2022-03-10 11:47 | Outpatient (REF) | payer MEDICARE, SELFPAY ==
--- NOTE | ~2022-03-10 | MM_ITS ---
EXAMINATION: MM SCREENING DIGITAL BREAST TOMOSYNTHESIS, BILATERAL CLINICAL INFORMATION: Screening. Asymptomatic. The lifetime risk of breast cancer based on the Tyrer-Cuzick Model is 4%. COMPARISON: Mammography: 06/09/2020, 07/02/2018, 09/15/2010 TECHNIQUE: Digital breast tomosynthesis is performed in both the craniocaudal and mediolateral oblique views along with computer-aided detection (CAD). Synthesized 2D images are generated from the tomosynthesis. FINDINGS: There are scattered areas of fibroglandular density (ACR BI-RADS breast composition Category b). There are no significant masses, abnormal calcifications, or other abnormalities. Parenchymal pattern is similar to prior studies. The axilla and skin contours are unremarkable. MM/MM tomosynthesis screening BI IMPRESSION: No mammographic evidence of malignancy. ASSESSMENT: BI-RADS 1: Negative RECOMMENDATION: Routine annual mammography screening. This patient's information was entered into a reminder system with a target due date for their next mammogram.
== END 2022-03-10 11:48 | disposition home or self-care (01) ==
LOC: HO.MAMMO 11:47
PROVIDERS: PCP Internal Medicine; Visit Provider Internal Medicine
DX: Z12.31 Encounter for screening mammogram for malignant neoplasm of breast (principal); K21.9 Gastro-esophageal reflux disease without esophagitis; R11.0 Nausea
CPT/HCPCS: 77063; 77067; 99212

== ENCOUNTER 2022-04-06 10:09 | Day surgery (SDC) | payer MEDICARE, SELFPAY ==
--- NOTE | 2022-03-22 12:27 | HO.ANESPROP2 ---
Documented by User: Kirsten Mahoney NP 03/28/22 13:20 HPI - Anesthesia Eval Consult details Narrative: 51yo F for Upper Endoscopy 04/06/22 Seen by cardiology 01/2022. C/O atypical CP. Per Dr Gloria, unlikely cardiac and no ischemic w/u at this time. *Multiple Med Allergies* Von Willebrand disease. Platelets prior to procedures in the past. Melissa at GI office to discuss with Dr Thomas and Dr Salazar. Per workload from Dr Salazar, pt to have platelets preop PMFSH Active Problems Active Problems: All Active Problems (Updated 02/08/22 @ 14:22 by TERRI Pope) Screening for breast cancer (Acute) Bipolar disorder (Acute) Cough (Acute) Rhinitis (Acute) Asthma exacerbation (Acute) Von Willebrands disease (Acute) Adult general medical exam (Acute) Screening for hyperlipidemia (Acute) Elevated liver enzymes (Acute) Tubular adenoma (Acute) Preoperative cardiovascular examination (Acute) Precordial chest pain (Acute) Other and unspecified hyperlipidemia (Acute) Pain of left breast (Acute) Hypovitaminosis D (Acute) Fibromyalgia (Acute) Hypothyroidism (Acute) Essential hypertension (Acute) Pure hypercholesterolemia (Acute) Past Medical History Medical History Anxiety Bipolar disorder Depression Elevated liver enzymes Essential hypertension Fibromyalgia History of asthma Hyperparathyroidism Hypothyroidism Hypovitaminosis D Pain of left breast Pure hypercholesterolemia Recent travel on aircraft Rectal bleeding Screening for hyperlipidemia Tubular adenoma Von Willebrand disease Von Willebrands disease Family History Family History Father Diabetes Hypertension Mother Hypertension Paternal Grandfather Throat cancer Maternal Grandfather Brain cancer Surgical History Surgical History H/O colonoscopy History of History of esophagogastroduodenoscopy (EGD) History of loop electrical excision procedure (LEEP) History of melanoma History of removal of skin mole Social History Social History Housing: Apartment Alcohol intake: never Patient Tobacco Use Status: Never used Tobacco Tobacco use type: Cigarette e-Cigarette/Vaping Use: Never Used Second Hand Smoke Exposure: No Use of substances other than those prescribed or required for medical reasons: No Substance Use Type: Marijuana Are you DNR?: No Advance Directives: No Advance Directives Information Provided: Yes service: No Current occupational status: unemployed Current occupational exposures/hazards: No Cognitive needs: No Hearing needs: No Vision needs: No Meds Allergies Allergy/AdvReac Type Severity Reaction Status Date / Time Iodinated Contrast Media Allergy Intermediate ITCHING/SHORTNESS Verified 03/10/22 13:03 [IV CONTRAST] OF BREATH shellfish derived Allergy Intermediate Hives Verified 03/10/22 13:03 aspirin [ASPIRIN] Allergy Unknown GASTRIC Verified 03/10/22 13:03 BLEEDING, bleeding divalproex sodium Allergy Unknown SWELLING Verified 03/10/22 13:03 [From DEPAKOTE] ezetimibe [Zetia] Allergy Unknown stomach Verified 03/10/22 13:03 upset lithium [LITHIUM] Allergy Unknown SWELLING Verified 03/10/22 13:03 metoclopramide [Reglan] Allergy Unknown anxiety Verified 03/10/22 13:03 pravastatin Allergy Unknown stomach Verified 03/10/22 13:03 upset simvastatin Allergy Unknown stomach Verified 03/10/22 13:03 upset Sulfa (Sulfonamide Allergy Unknown ITCHING, Verified 03/10/22 13:03 Antibiotics) pruritus, [SULFA (SULFONAMIDE rash ANTIBIOTICS)] lamotrigine [From LAMICTAL] AdvReac Unknown AGGRESSION Verified 03/10/22 13:03 flu shot Allergy Mild pruritus,ra Uncoded 02/08/22 14:11 sh,vomiting platelets Allergy Mild redness,itching-IV Uncoded 02/08/22 14:11 Benadryl [id number] rash c PO seasonal allergies Allergy Mild nasal and Uncoded 02/08/22 14:11 throat irratation Statins Support Allergy Mild rash, itchy Uncoded 02/08/22 14:11 From SEROQUEL AdvReac Unknown ANXIOUS Uncoded 02/08/22 14:11 Home Medications Medication Instructions Recorded Confirmed Last Taken Type clonidine HCl 0.1 mg tablet 0.1 mg PO BEDTIME 02/15/21 02/08/22 04/06/22 History Exam Exam Date and Time: March 22, 2022 1227 Pertinent Lab Results Pertinent Lab Results: Laboratory Tests 01/10/22 01/10/22 12:33 12:33 WBC 6.7 Hgb 13.3 Hct 41.3 Plt Count 324 Sodium 139 Potassium 4.1 Chloride 100 Carbon Dioxide 29 BUN 18 H D Creatinine 0.74 Narrative Narrative: EKG 01/2022 sinus rhythm at 97/Min; no significant ST-T changes and otherwise unremarkable.? Normal WA/QTc. Assessment and Plan Assessment Anesthesia Assessment: Chart Reviewed Documented by User: Delores Vásquez MD 04/06/22 12:06 [facility] Active Problems Active Problems: All Active Problems (Updated 02/08/22 @ 14:22 by TERRI Pope) Screening for breast cancer (Acute) Bipolar disorder (Acute) Cough (Acute) Rhinitis (Acute) Asthma exacerbation (Acute) Von Willebrands disease (Acute) Adult general medical exam (Acute) Screening for hyperlipidemia (Acute) Elevated liver enzymes (Acute) Tubular adenoma (Acute) Preoperative cardiovascular examination (Acute) Precordial chest pain (Acute) Other and unspecified hyperlipidemia (Acute) Pain of left breast (Acute) Hypovitaminosis D (Acute) Fibromyalgia (Acute) Hypothyroidism (Acute) Essential hypertension (Acute) Pure hypercholesterolemia (Acute) ?Platelets vs DDAVP. Patient states that she is allergic to DDAVP Past Medical History Medical History Anxiety Bipolar disorder Depression Elevated liver enzymes Essential hypertension Fibromyalgia History of asthma Hyperparathyroidism Hypothyroidism Hypovitaminosis D Pain of left breast Pure hypercholesterolemia Recent travel on aircraft Rectal bleeding Screening for hyperlipidemia Tubular adenoma Von Willebrand disease Von Willebrands disease Family History Family History Father Diabetes Hypertension Mother Hypertension Paternal Grandfather Throat cancer Maternal Grandfather Brain cancer Family history of problems with anesthesia: No Surgical History Surgical History H/O colonoscopy History of History of esophagogastroduodenoscopy (EGD) History of loop electrical excision procedure (LEEP) History of melanoma History of removal of skin mole History of Problems with Anesthesia: No Social History Social History Housing: Apartment Alcohol intake: never Patient Tobacco Use Status: Never used Tobacco Tobacco use type: Cigarette e-Cigarette/Vaping Use: Never Used Second Hand Smoke Exposure: No Use of substances other than those prescribed or required for medical reasons: No Substance Use Type: Marijuana Are you DNR?: No Advance Directives: No Advance Directives Information Provided: Yes service: No Current occupational status: unemployed Current occupational exposures/hazards: No Cognitive needs: No Hearing needs: No Vision needs: No Meds Allergies Allergy/AdvReac Type Severity Reaction Status Date / Time Iodinated Contrast Media Allergy Intermediate ITCHING/SHORTNESS Verified 03/10/22 13:03 [IV CONTRAST] OF BREATH shellfish derived Allergy Intermediate Hives Verified 03/10/22 13:03 aspirin [ASPIRIN] Allergy Unknown GASTRIC Verified 03/10/22 13:03 BLEEDING, bleeding divalproex sodium Allergy Unknown SWELLING Verified 03/10/22 13:03 [From DEPAKOTE] ezetimibe [Zetia] Allergy Unknown stomach Verified 03/10/22 13:03 upset lithium [LITHIUM] Allergy Unknown SWELLING Verified 03/10/22 13:03 metoclopramide [Reglan] Allergy Unknown anxiety Verified 03/10/22 13:03 pravastatin Allergy Unknown stomach Verified 03/10/22 13:03 upset simvastatin Allergy Unknown stomach Verified 03/10/22 13:03 upset Sulfa (Sulfonamide Allergy Unknown ITCHING, Verified 03/10/22 13:03 Antibiotics) pruritus, [SULFA (SULFONAMIDE rash ANTIBIOTICS)] lamotrigine [From LAMICTAL] AdvReac Unknown AGGRESSION Verified 03/10/22 13:03 flu shot Allergy Mild pruritus,ra Uncoded 02/08/22 14:11 sh,vomiting platelets Allergy Mild redness,itching-IV Uncoded 02/08/22 14:11 Benadryl btl-[id number] rash c PO seasonal allergies Allergy Mild nasal and Uncoded 02/08/22 14:11 throat irratation Statins Support Allergy Mild rash, itchy Uncoded 02/08/22 14:11 From SEROQUEL AdvReac Unknown ANXIOUS Uncoded 02/08/22 14:11 Home Medications Medication Instructions Recorded Confirmed Last Taken Type clonidine HCl 0.1 mg tablet 0.1 mg PO BEDTIME 02/15/21 02/08/22 04/06/22 History Exam Height,Weight and Vital Signs: Height 5 ft 3 in Weight 76.204 kg Vital Signs Temp Pulse Resp BP Pulse Ox O2 Del Method 04/06/22 10:22 97.6 F 90 18 141/85 H 96 Room Air Airway Mallampati Class: II TM Dist: >3cm Neck ROM: Full Loose/Missing/Broken Teeth: No (Dental implant intact. Denies broken or loose teeth) Heart: RRR ?murmur Lungs: CTAB Assessment and Plan Assessment Anesthesia Assessment: Anesthesia Plan Discussed Final Anesthetic Review Family History of Problems with Anesthesia: No History of Problems with Anesthesia: No NPO: Yes ASA Class: III Final Preanesthetic Review: No Changes in Pt Med Stat, Meds/Allgs Chart Reviewed, Consent Obtained/Reviewed and Anes Risks/Benef Reviewed Patient Risk: Intermediate Procedure Risk: Low Assessment/Block/Sedation in SS: Assess/Block/Sedation-SS Anesthetic Plan Anesthetic Plan: MAC: Disposition: Standard PACU
--- NOTE | 2022-04-04 11:38 | MHC.HEMONCMA ---
contacted patient for Dr. Salazar, arrive for platlets prior to procedure on 04/06/22 at 1:10pm with arrival of 12:10, she wants him to come for platlets at 10:30 am in [facility].
[2022-04-06 10:22] VITALS: BP 141/85; PULSE 90; RESP 18; TEMP 36.4; O2SAT 96; BMI 29.7
[2022-04-06 10:31] LABS: MANUAL DIFF FLAG NO
[2022-04-06 10:35] LABS: Basophils Absolute Auto 0.1 X10*3/uL (0.0-0.2); Eosinophils Absolute Auto 0.3 X10*3/uL (0.0-0.4); Eosinophils Percent Auto 3.7 % (0-4); Hematocrit 40.6 % (37.0-47.0); Hemoglobin 13.5 g/dl (12.0-16.0); Imm Gran Abs Auto 0.02 X10*3/uL (0.00-0.03); Imm Gran Pct Auto 0.3 % (0.0-0.4); Lymphocytes Absolute Auto 1.8 X10*3/uL (1.2-4.9); Lymphocytes Percent Auto 24.8 % (20-40); Mean Corpuscular HGB Conc 33.3 g/dl (31.0-35.0); Mean Corpuscular Hemoglobin 28.7 pg (27.0-33.0); Mean Corpuscular Volume 86.2 fL (80.0-98.0); Mean Platelet Volume 11.1 fL (9.4-12.3); Monocytes Absolute Auto 0.5 X10*3/uL (0.1-1.2); Monocytes Percent Auto 6.3 % (2-11); Neutrophils Absolute Auto 4.7 x10*3/uL (2.0-8.3); Neutrophils Percent Auto 63.9 % (45-73); Platelet Count 310 X10*3/uL (160-400); Red Blood Count 4.71 X10*6/uL (4.20-5.50); White Blood Count 7.3 X10*3/uL (4.8-10.8)
[2022-04-06 10:57] LABS: Alanine Aminotransferase 56 U/L (0-31); Albumin Level 4.5 g/dL (3.5-5.0); Alkaline Phosphatase 57 U/L (39-117); Anion Gap 17 (12-20); Aspartate Amino Transferase 36 U/L (5-31); Bilirubin Total 0.5 mg/dL (0.0-1.0); Blood Urea Nitrogen 19 mg/dL (9-16); Calcium 9.6 mg/dL (8.4-10.2); Carbon Dioxide 29 mmol/L (22-29); Chloride 98 mmol/L (96-108); Creatinine Clr Calc Pharmacy 78.4; Estimated Glomerular Filt Rate > 60; Glucose Fasting 104 mg/dL (60-99); Potassium 3.7 mmol/L (3.3-5.1); Sodium 140 mmol/L (135-145); Total Protein 7.6 g/dL (6.5-8.0)
[2022-04-06] MEDS: diphenhydrAMINE HCL 25 MG TABLET PO (11:17)
[2022-04-06] MEDS: oxyCODONE HCl Immed Release 5 MG TABLET PO (11:17)
[2022-04-06] MEDS: methylPREDNISolone Sod Succ 125 MG/2 ML VIAL 100 MG IVPUSH (11:21)
--- NOTE | 2022-04-06 11:59 | MHC.SHP ---
Pre-Procedural Eval Section A Date of Service: 04/06/22 The patient is an INPATIENT: No The History & Physical has been completed within 30 days and I have reviewed it.: Yes Section B Allergies: Allergies Allergy/AdvReac Type Severity Reaction Status Date / Time Iodinated Contrast Media Allergy Intermediate ITCHING/SHORTNESS Verified 03/10/22 13:03 [IV CONTRAST] OF BREATH shellfish derived Allergy Intermediate Hives Verified 03/10/22 13:03 aspirin [ASPIRIN] Allergy Unknown GASTRIC Verified 03/10/22 13:03 BLEEDING, bleeding divalproex sodium Allergy Unknown SWELLING Verified 03/10/22 13:03 [From DEPAKOTE] ezetimibe [Zetia] Allergy Unknown stomach Verified 03/10/22 13:03 upset lithium [LITHIUM] Allergy Unknown SWELLING Verified 03/10/22 13:03 metoclopramide [Reglan] Allergy Unknown anxiety Verified 03/10/22 13:03 pravastatin Allergy Unknown stomach Verified 03/10/22 13:03 upset simvastatin Allergy Unknown stomach Verified 03/10/22 13:03 upset Sulfa (Sulfonamide Allergy Unknown ITCHING, Verified 03/10/22 13:03 Antibiotics) pruritus, [SULFA (SULFONAMIDE rash ANTIBIOTICS)] lamotrigine [From LAMICTAL] AdvReac Unknown AGGRESSION Verified 03/10/22 13:03 flu shot Allergy Mild pruritus,ra Uncoded 02/08/22 14:11 sh,vomiting platelets Allergy Mild redness,itching-IV Uncoded 02/08/22 14:11 Benadryl [id number]-idnrxfwm-djni rash c PO seasonal allergies Allergy Mild nasal and Uncoded 02/08/22 14:11 throat irratation Statins Support Allergy Mild rash, itchy Uncoded 02/08/22 14:11 From SEROQUEL AdvReac Unknown ANXIOUS Uncoded 02/08/22 14:11 Review of Systems Review of Systems Comment: 10 point ROS reviewed and completed unchanged from previous GI note. Exam Exam Comment: Gen appear: No acute distress, well nourished HEENT: no icterus, Chest: No overt resp distress Abd: soft, mild tenderness in epigastrium, nondistended Psych: Stable affect, answering questions appropriately Neuro: A/Ox3 noted to move all extremities spontaneously Ext: no peripheral edema Plan Diagnosis/Plan: Unchanged I have reviewed the history and physical and performed a pertinent physical examination on my patient. No changes have occurred unless specified.
--- NOTE | 2022-04-06 11:59 | P.OP_ITS ---
Operative Note Operative Note Date of Service: 04/06/22 Narrative: Procedure: Esophagogastroduodenoscopy Endoscopist: Autumn Thomas MD Indication: Epigastric pain, nausea, vomiting, weight loss Anesthesia Provider: Dr Delores Vásquez Anesthesia Type: MAC EGD Procedure:?? The procedure, indications, preparation and potential complications were reviewed with the patient, who indicated understanding and gave written informed consent to proceed. A physical exam was performed. Prior to procedure, platelets were infused as recommended by patient's coremaker bench. The endoscope was introduced through the mouth, and advanced to the second part of duodenum. The mucosa was carefully examined on slow withdrawal of the endoscope. The patient tolerated the procedure well. There were no immediate complications.? EGD Findings:? ? Esophagus:? Normal mucosa noted in the entire esophagus. The Z line was at 36 cm. ? Stomach:? Normal mucosa was noted in the stomach. Random cold forceps gastric biopsies were taken to rule out H Pylori infection. ? Duodenum:? Normal mucosa was noted in the whole of the examined duodenum. Cold forceps biopsies were taken from duodenal bulb and second portion of the duodenum to rule out celiac disease. EGD Impressions:? ? Normal esophagus ? Normal stomach (biopsy) ? Normal duodenum (biopsy) Recommendations:?? ? Follow biopsy results. Our office will call or send a letter with results within 7-10 days. ? If H pylori +, patient will be prescribed eradication therapy followed by test of cure. ? No gross endoscopic abnormality to explain patient's persistent epigastric pain and weight loss. Can consider cross sectional imaging as clinically indicated. ? Avoid NSAIDs and smoking. ? Follow up in GI office as scheduled. ? Above has been reviewed with the patient. Educational hand outs were provided at discharge.
[2022-04-06 12:42] VITALS: BP 104/57; PULSE 96; RESP 16; TEMP 36.1; O2SAT 96
== END 2022-04-06 13:27 | disposition home or self-care (01) ==
PROVIDERS: Internal Medicine Medical Oncology; PCP Internal Medicine; Visit Provider Internal Medicine
PROC: 0DJ08ZZ Inspection of Upper Intestinal Tract, Via Natural or Artificial Opening Endoscopic (ICD-10-PCS; CPT 43235; principal; 2022-04-06 12:10)
DX: R11.0 Nausea (principal); K21.9 Gastro-esophageal reflux disease without esophagitis; R63.4 Abnormal weight loss; K59.04 Chronic idiopathic constipation; R74.8 Abnormal levels of other serum enzymes; J30.2 Other seasonal allergic rhinitis; I10 Essential (primary) hypertension; F31.9 Bipolar disorder, unspecified; M79.7 Fibromyalgia; D68.0 Von Willebrand disease; E21.3 Hyperparathyroidism, unspecified; E03.9 Hypothyroidism, unspecified; E55.9 Vitamin D deficiency, unspecified; E78.00 Pure hypercholesterolemia, unspecified; Z79.899 Other long term (current) drug therapy; Z88.2 Allergy status to sulfonamides; Z88.7 Allergy status to serum and vaccine; Z88.8 Allergy status to other drugs, medicaments and biological substances; Z91.041 Radiographic dye allergy status; Z85.820 Personal history of malignant melanoma of skin
CPT/HCPCS: 43239; 36415; 80053; 85025; 86850; 86900; 86901; 88305; 88342; J2930; P9073; Q0163

== ENCOUNTER → 2022-05-08 13:28 | Outpatient (BNVA) | payer MEDICARE, SELFPAY | PROVIDERS: PCP Internal Medicine; Referring Provider Internal Medicine; Visit Provider Nurse Practitioner Family | DX: K21.9 Gastro-esophageal reflux disease without esophagitis (principal); K59.03 Drug induced constipation; R14.0 Abdominal distension (gaseous) | CPT/HCPCS: 99212 ==

== ENCOUNTER 2022-05-27 13:51 | Emergency (ER) | payer MEDICARE, SELFPAY ==
--- NOTE | ~2022-05-27 | XR_ITS ---
EXAMINATION: XR HAND, RIGHT CLINICAL INFORMATION: Animal bite third finger COMPARISON: None TECHNIQUE: PA, lateral, and oblique views of the right hand. FINDINGS: The bones and soft tissues are normal. No fracture. Alignment is anatomic. Joint spaces are maintained. No erosions or soft tissue calcifications. XR/XR hand RT 2V IMPRESSION: No fractures or foreign bodies.
[2022-05-27 13:55] VITALS: BP 135/93; PULSE 112; RESP 17; TEMP 36; O2SAT 99; BMI 28.8
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
[2022-05-27 16:28] VITALS: TEMP 37
[2022-05-27] MEDS: Rabies Vaccine (PCEC)/PF 1 ML VIAL IM (17:06)
[2022-05-27] MEDS: Rabies Immune Globulin/PF 900 UNIT/3 ML VIAL 1478.72 UNIT IM (17:07)
== END 2022-05-27 17:25 | disposition home or self-care (01) ==
PROVIDERS: Emergency Provider Emergency Medicine; PCP Internal Medicine
DX: S61.252A Open bite of right middle finger without damage to nail, initial encounter (principal); W55.51XA Bitten by raccoon, initial encounter; Y93.89 Activity, other specified; Y92.414 Local residential or business street as the place of occurrence of the external cause; Y99.9 Unspecified external cause status; Z20.3 Contact with and (suspected) exposure to rabies
CPT/HCPCS: 73120; 90375; 90471; 90675; 96372; 99282; 99284

== ENCOUNTER 2022-05-30 13:36 | Outpatient (REF) | payer MEDICARE, SELFPAY | END 2022-05-30 13:37 | disposition home or self-care (01) | LOC: HO.MDS 13:36 | PROVIDERS: Visit Provider Nurse Practitioner Family | DX: Z29.14 Encounter for prophylactic rabies immune globulin (principal); S60.47 Other superficial bite of fingers; W55.51XD Bitten by raccoon, subsequent encounter; Z20.3 Contact with and (suspected) exposure to rabies | CPT/HCPCS: 90471; 90675 ==

== ENCOUNTER 2022-06-03 09:36 | Outpatient (REF) | payer MEDICARE, SELFPAY | END 2022-06-03 09:37 | disposition home or self-care (01) | LOC: HO.MDS 09:36 | PROVIDERS: PCP Internal Medicine; Visit Provider Nurse Practitioner Family | DX: Z29.14 Encounter for prophylactic rabies immune globulin (principal); S61.252D Open bite of right middle finger without damage to nail, subsequent encounter; W55.51XD Bitten by raccoon, subsequent encounter; Z20.3 Contact with and (suspected) exposure to rabies | CPT/HCPCS: 90675; 96372 ==

== ENCOUNTER 2022-06-10 10:59 | Outpatient (REF) | payer MEDICARE, SELFPAY | END 2022-06-10 11:00 | disposition home or self-care (01) | LOC: HO.MDS 10:59 | PROVIDERS: Visit Provider Nurse Practitioner Family | DX: Z29.14 Encounter for prophylactic rabies immune globulin (principal); S61.252D Open bite of right middle finger without damage to nail, subsequent encounter; W55.51XD Bitten by raccoon, subsequent encounter; Z20.3 Contact with and (suspected) exposure to rabies | CPT/HCPCS: 90471; 90675 ==

== ENCOUNTER 2022-09-05 10:50 | Outpatient (REF) | payer MEDICARE, SELFPAY ==
[2022-09-05 11:08] LABS: MANUAL DIFF FLAG NO
[2022-09-05 11:15] LABS: Basophils Absolute Auto 0.1 X10*3/uL (0.0-0.2); Eosinophils Absolute Auto 0.3 X10*3/uL (0.0-0.4); Eosinophils Percent Auto 3.3 % (0-4); Hemoglobin 14.2 g/dl (12.0-16.0); Imm Gran Abs Auto 0.01 X10*3/uL (0.00-0.03); Imm Gran Pct Auto 0.1 % (0.0-0.4); Lymphocytes Absolute Auto 2.8 X10*3/uL (1.2-4.9); Lymphocytes Percent Auto 35.2 % (20-40); Mean Corpuscular HGB Conc 32.3 g/dl (31.0-35.0); Mean Corpuscular Hemoglobin 27.8 pg (27.0-33.0); Mean Corpuscular Volume 86.1 fL (80.0-98.0); Mean Platelet Volume 11.3 fL (9.4-12.3); Monocytes Absolute Auto 0.5 X10*3/uL (0.1-1.2); Monocytes Percent Auto 6.3 % (2-11); Neutrophils Absolute Auto 4.3 x10*3/uL (2.0-8.3); Neutrophils Percent Auto 54.1 % (45-73); Platelet Count 335 X10*3/uL (160-400); Red Blood Count 5.11 X10*6/uL (4.20-5.50); Red Cell Distribution Width 12.6 % (11.0-16.0)
[2022-09-05 13:02] LABS: Alanine Aminotransferase 41 U/L (0-31); Albumin Level 4.5 g/dL (3.5-5.0); Alkaline Phosphatase 58 U/L (39-117); Anion Gap 16 (12-20); Aspartate Amino Transferase 26 U/L (5-31); Bilirubin Total 0.4 mg/dL (0.0-1.0); Blood Urea Nitrogen 16 mg/dL (9-16); Calcium 10.1 mg/dL (8.4-10.2); Carbon Dioxide 30 mmol/L (22-29); Chloride 98 mmol/L (96-108); Cholesterol 278 mg/dL; Estimated Glomerular Filt Rate > 60; Glucose Fasting 88 mg/dL (60-99); HDL Cholesterol 47 mg/dL; LDL Cholesterol Calculated 192 mg/dl; Potassium 4.1 mmol/L (3.3-5.1); Sodium 140 mmol/L (135-145); Total Protein 7.4 g/dL (6.5-8.0); Triglycerides 198 mg/dL
[2022-09-05 13:21] LABS: Thyroid Stimulating Hormone 0.32 uIU/mL (0.32-4.0); Vitamin D 25-OH Total 31.1 ng/mL (>30)
== END 2022-09-05 10:51 | disposition home or self-care (01) ==
LOC: HO.LAB 10:50
PROVIDERS: Internal Medicine Medical Oncology; PCP Internal Medicine; Visit Provider Internal Medicine
DX: Z00.00 Encounter for general adult medical examination without abnormal findings (principal); E55.9 Vitamin D deficiency, unspecified; E03.9 Hypothyroidism, unspecified; E78.5 Hyperlipidemia, unspecified; D68.00 Von Willebrand disease, unspecified
CPT/HCPCS: 36415; 80053; 80061; 82306; 84443; 85025

== ENCOUNTER → 2023-03-16 11:15 | Outpatient (BNV) | payer MEDICARE, SELFPAY | PROVIDERS: PCP Internal Medicine; Visit Provider Radiology Diagnostic Radiology | DX: Z12.31 Encounter for screening mammogram for malignant neoplasm of breast (principal) | CPT/HCPCS: 77063; 77067 ==

== ENCOUNTER 2023-03-16 11:19 | Outpatient (REF) | payer MEDICARE, SELFPAY ==
--- NOTE | ~2023-03-16 | MM_ITS ---
EXAMINATION: MM SCREENING DIGITAL BREAST TOMOSYNTHESIS, BILATERAL CLINICAL INFORMATION: Screening. Asymptomatic. The lifetime risk of breast cancer based on the Tyrer-Cuzick Model is 6.9%. COMPARISON: Mammography: This study is compared with prior exams dating back to 2018. TECHNIQUE: Digital breast tomosynthesis is performed in both the craniocaudal and mediolateral oblique views along with computer-aided detection (CAD). Synthesized 2D images are generated from the tomosynthesis. FINDINGS: There are scattered areas of fibroglandular density (ACR BI-RADS breast composition Category b). There are no significant masses, abnormal calcifications, or other abnormalities. MM/MM tomosynthesis screening BI IMPRESSION: No mammographic evidence of malignancy. ASSESSMENT: BI-RADS BI-RADS 1 - Negative RECOMMENDATION: Routine annual mammography screening. 1 year F/U This examination should not preclude the clinical evaluation of a suspicious palpable abnormality. This patient's information was entered into a reminder system with a target due date for their next mammogram.
== END 2023-03-16 11:20 | disposition home or self-care (01) ==
LOC: HO.MAMMO 11:19
PROVIDERS: PCP Internal Medicine; Visit Provider Internal Medicine
DX: Z12.31 Encounter for screening mammogram for malignant neoplasm of breast (principal)
CPT/HCPCS: 77063; 77067

== ENCOUNTER 2023-04-05 12:01 | Outpatient (REF) | payer MEDICARE, SELFPAY ==
[2023-04-05 13:18] LABS: Influenza A PCR NEGATIVE (Negative); Influenza B PCR NEGATIVE (Negative); Resp Syncy Virus RNA Qual PCR NEGATIVE (Negative); SARS COV2 PCR INHOUSE NEGATIVE (Negative)
== END 2023-04-05 12:02 | disposition home or self-care (01) ==
LOC: HO.LAB 12:01
PROVIDERS: PCP Internal Medicine; Visit Provider Internal Medicine
DX: Z20.828 Contact with and (suspected) exposure to other viral communicable diseases (principal)
CPT/HCPCS: 0241U